=== PATIENT | male | born 1970 | race Caucasian/White ===

== ENCOUNTER 2023-02-10 15:02 | Emergency (ER) | payer MEDICAID, SELFPAY ==
[2023-02-10 15:03] VITALS: BP 143/88; PULSE 73; RESP 16; TEMP 36.6; O2SAT 97; BMI 35.4
--- NOTE | 2023-02-10 15:49 | ED.RN ---
assumed care at this time
--- NOTE | 2023-02-10 16:47 | EDS_ITS ---
HPI History of Present Illness Chief Complaint: Bite Detail of Chief Complaint: Dog bite right and left upper extremity Informant: patient Occured/Mechanism Comment: Dog bite. Patient's immunization up-to-date. Dog immunizations reportedly up-to-date Onset/Context/Timing Onset: Today Context: Sudden Onset (Presently resolved) Quality of Pain: Dull and Aching Current Severity: Gone Maximum Severity: Moderate Worsened by: Dog bite Relieved by: Not applicable Associated Symptoms Associated Symptoms: Negative for Parasthesia, Weakness or Loss of Funtion Narrative Narrative: Patient is a 52-year-old [id number] male presents with dog bite. There is a puncture wound over the MCP joint of the right little finger. There is a puncture wound noted 2 cm distal to the ulnar styloid, 2.5 cm proximal to the ulnar styloid and 4.5 cm proximal to the ulnar styloid. Patient denies paresthesia, anesthesia or motor weakness. He is not allergic to any antibiotic. He is on no immunosuppressive meds. He is on no antithrombotic or anticoagulant. Tetanus Immunization: 5-10 years Prior similar symptoms: No Recent Illness/Hospitalization: No PFSH PFSH Home Medications amoxicillin 875 mg-potassium clavulanate 125 mg tablet 875 mg (0.875 x 875-125 mg) PO Q12H #10 TABLETS 02/10/23 [Rx Last Taken Unknown] Allergy/AdvReac Type Severity Reaction Status Date / Time No Known Allergies Allergy Verified 02/10/23 15:04 Social History Smoking Status: Never smoker ROS ROS ED Constitutional Constitutional ED: Denies chills, fever(s), subjective or sweats Integumentary Reports other Details: Pressure wound due to dog bite as previously described HPI narrative Neurologic Neurologic: Denies paresthesias or weakness Hematologic/Lymphatic Hematologic/Lymphatic: Denies easy bleeding or easy bruising EXAM Physical Exam Const Vital Signs: 02/10/23 15:03 Temperature 98 F Temperature Source Temporal Pulse Rate 73 Respiratory Rate 16 Blood Pressure 143/88 H Blood Pressure Mean 106 Pulse Ox 97 Oxygen Delivery Method Room Air Positive well nourished and well developed General Appearance ED: well developed and NAD HEENT normocephalic and atraumatic Eyes PERRL and EOMs intact bilaterally Neck full ROM Resp normal respiratory effort and clear to auscultation bilaterally Cardio regular rate and regular rhythm Extremity Negative for normal to inspection Extremity Narrative: Dog bite as described right hand and left upper extremity. Median, radial and ulnar function intact. The extensor minimize tendon is functionally intact right little finger. The extensor minimize tendon and extensor commonness tendons intact involving the left ring and little finger. The flexor to digitorum superficialis and flexor digitorum profundus are intact left ring and little finger. The flexor and extensor carpi all naris are intact. There is no drainage. There is no erythema. There is no lymphangitis. There is no epitrochlear apathy. Neuro oriented x3, CN's II-XII intact bilaterally, no focal motor deficits and no sensory deficits noted Sensorium / Orientation: alert Psych mental status grossly normal Skin Skin Narrative: Four puncture wounds due to dog bite MDM MDM MDM Narrative Medical decision making narrative: Puncture wounds closure is not needed. Patient received Augmentin for prophylactic treatment to prevent infection. Patient was told even though he was placed on antibiotics and the wound was cleaned he still may develop infection. The one that should be of most concern is the 1 on the right hand because it is in the proximity of the extensor minimize tendon. History & Record Review Additional record(s) reviewed:: No prior records Discharge Plan Triage Chief Complaint: Bite ED Provider: Nestor Singer Dx/Rx/DC Orders Clinical Impression: Dog bite of left hand, Dog bite of left forearm, Dog bite of right hand Instructions: ED Dog Bite Prescriptions: New amoxicillin-pot clavulanate [amoxicillin-pot clavulanate] 875-125 mg tablet 875 mg PO Q12H Qty: 10 0RF Primary Care Provider: Tyesha Doctor,Out of Referrals: [facility] Doctor,Out of [Primary Care Provider] - 2 Days for wound check Disposition Disposition: Home, Self Care
[2023-02-10] MEDS: Amox/Clavulanate 875 MG Tablet PO (17:07)
== END 2023-02-10 17:55 | disposition home or self-care (01) ==
LOC: ED 17:22
PROVIDERS: Emergency Provider Emergency Medicine; Visit Provider Emergency Medicine
DX: S51.832A Puncture wound without foreign body of left forearm, initial encounter (principal); S61.236A Puncture wound without foreign body of right little finger without damage to nail, initial encounter; W54.0XXA Bitten by dog, initial encounter
CPT/HCPCS: 99283